=== PATIENT | female | born 1985 | race Caucasian/White ===

== ENCOUNTER 2024-08-07 08:00 | Outpatient (RCR) | payer OTHER, SELFPAY | END 2024-12-02 16:27 | disposition home or self-care (01) | PROVIDERS: Visit Provider Orthopaedic Surgery | DX: M25.561 Pain in right knee (principal); M25.562 Pain in left knee; M70.50 Other bursitis of knee, unspecified knee; Z51.89 Encounter for other specified aftercare | CPT/HCPCS: 97110; 97140; 97161; 97535 ==

== ENCOUNTER 2025-04-04 08:38 | Emergency (ER) | payer OTHER, SELFPAY ==
--- OUTSIDE RECORDS SUMMARY | 2025-04-04 08:41 | XMS_ITS | Encounter Summary ---
Author Organization [facility] Address [address] [place] [address] Care Team Providers Care Cable Coverer Name Role Phone Trev Pelaez MD Primary Care Provider [phone] Trev Pelaez MD Unavailable Trev Pelaez MD Unavailable Laura Ramos MD Unavailable [phone] Encounter Details Date Type Department Care Team (Late st Contact Info) Description 12/05/2018 [facility] [address] [place] [address] Laura Ramos MD [address] [place] [address] Social History Tobacco Use Types Packs/Day Years Used Date Smoking Tobacco: Former Cigarettes 1 10 0 10/30/2000 - 10/30/2010 Smokeless Tobacco: Never Quit: 10/30/2010 Alcohol Use Standard Drinks/Week Comments No 0 (1 standard drink = 0.6 oz pur e alcohol) PHQ-2 Answer Date Recorded PHQ-2 Score 0 11/07/2018 Comments No Sex and Gender Information Value Date Recorded Sex Assigned at Female 10/09/2018 10:08 AM PROFESSOR OF BIBLICAL STUDIES Legal Sex Female 5:09 AM PROFESSOR OF BIBLICAL STUDIES Gender Identity Female 10/09/2018 10:08 AM PROFESSOR OF BIBLICAL STUDIES Sexual Orientation Straight 10/09/2018 10 :08 AM PROFESSOR OF BIBLICAL STUDIES documented as of this encounter Miscellaneous Notes * Op Note - Laura Ramos MD - 12/05/2018 11:59 PM CST OPERATIVE LAPAROSCOPY: BILATERAL SALPINGECTOMY DATE OF PROCEDURE: Dec 05, 2018 STAFF SURGEON: Laura Ramos MD PREOPERATIVE DIAGNOSIS: desires sterilization POSTOPERATIVE DIAGNOSIS: Same, normal pelvis PROCEDURE: Single port laparoscopy, bilateral salpingectomy DERMATOLOGY NURSE PRACTITIONER SURGEON: Dr. Rivers ANESTHESIA: General endotracheal anesthesia. COMPLICATIONS: none noted EBL: 10 mL SPECIMENS: bilateral tubes FINDINGS: normal pelvis INDICATIONS: Desires sterilization. She was counseled on the risks, benefits, and alternatives to the procedure; informed consent was signed. DESCRIPTION OF PROCEDURE: The patient was taken to the operating room where general endotracheal anesthesia was induced without difficulty and found to be adequate. She was prepped and draped in the normal sterile fashion in the modified dorsal lithotomy position in [facility]. Oxford speculum was placed in the vagina to visualize the cervix, and a uterine manipulator was placed. Urinary catheter was placed for drainage of the bladder. Gloves were changed and attention was turned to the abdomen. A 2.5 cm skin incision was made with the scalpel in a curvilinear fashion, just inside the umbilical fold. The fascia was identified,grasped, and elevated with small herman clamps, and fascial incision was made with Romo scissors. The peritoneum was entered bluntly, and the single port was placed in the incision. The abdomen was insufflated to 15 mm Hg. The abdomen and pelvis were surveyed, normal anatomy noted. A blunt probe was usedto evacuate the bowels from the pelvis. The left Fallopian tube was then grasped and visually traced to its fimbriated end. The Thunderbeat device was then used to coagulate and divide the mesosalpinx, and again used to coagulate and divide the tube at the cornua, excising the entire Fallopian tubein the process. This procedure was then repeated on the contralateral side. Hemostasis was noted tara excellent. Both tubes were removed intact through the umbilical port sites. Careful reexamination of the pelvis revealed no bleeding and no abnormal pathology. Therefore, single port was removed, and the fascia closed with 0 vicryl. The skin was reapproximated with 3.0 monocryl. Attention was turned again to the pelvis. The catheter was removed, and urine output noted to be adequate and clear. A speculum was placed in the vagina, and the uterine manipulator was removed. Hemostasis at the tenaculum site was obtained with silver nitrate. All counts were correct x2. The patient was returned to the supine position, awoken from anesthesia, and taken to postoperative recovery in good condition. Dr. Rivers's assistance was needed for retraction, exposure, camera navigation, and for safe completion of the operative procedure(s) listed above. Laura Ramos MD 12:04 PM December 29, 2018 ESSOR OF BIBLICAL STUDIES documented in this encounter Plan of Treatment Not on file documented as of this encounter Visit Diagnoses Not on filedocumented in this encounter Additional Health Concerns Assessment Noted Time PHQ-9 Depression Total Score: 6 05/02/20 17 7:15 AM CDT documented as of this encounter Care Teams Cable Coverer Relationship Specialty Start Date End Date Trev Pelaez MD PCP - General Family Practice 04/04/16 [place] [address] [place] [address] PCP - Assigned PCP 04/10/16 01/01/19 [place] [address] [id number] Assigned PCP 04/10/16 11/27/21 Laura Ramos MD [address] [place] [address] Assigned OBGYN Provider 08/21/2010/17 documented as of this encounter
--- OUTSIDE RECORDS SUMMARY | 2025-04-04 08:41 | XMS_ITS | Encounter Summary ---
Author Organization [facility] Address [address] [place] [address] Care Team Providers Care Control Panel Builder Name Role Phone Trev Pelaez MD Primary Care Provider [phone] Trev Pelaez MD Unavailable Trev Pelaez MD Unavailable Laura Ramos MD Unavailable [phone] Reason for Visit * Reason Onset Date Comments Refill Request 04/29/2018 pantoprazole (MO OTONIX) 40 MG EC tablet Encounter Details Date Type Department Care Team (Late st Contact Info) Description 04/29/[address], [address] [place] [address] [place] [address] [place] [address] Refill Request (pantoprazole (PROTONIX) 40 MG EC tablet) Social History Tobacco Use Types Packs/Day Years Used Date Smoking Tobacco: Former Cigarettes Q uit: 10/30/2010 Smokeless Tobacco: Never Quit: 10/30/2010 Alcohol Use Standard Drinks/Week Comments No 0 (1 standard drink = 0.6 oz pur e alcohol) Comments No Sex and Gender Information Value Date Recorded Sex Assigned at Female 10/09/2018 10:08 AM CDC ASSOCIATE Legal Sex Female 5:09 AM CDC ASSOCIATE Gender Identity Female 10/09/2018 10:08 AM CDC ASSOCIATE Sexual Orientation Straight 10/09/2018 10 :08 AM CDC ASSOCIATE documented as of this encounter Miscellaneous Notes * Telephone Encounter - June Hidalgo RN - 05/01/2018 10:10 AM CDT Prescription approved per [facility] Refill Protocol. June Hidalgo RN * Telephone Encounter - Thea Gates - 04/30/2018 11:46 AM CDT Requested Prescriptions Pending Prescriptions Disp Refills ??? pantoprazole (PROTONIX) 40 MG EC tablet [Pharmacy Med Name: PANTOPRAZOLE SOD DR 40 MG TAB] Last Written Prescription Date: 12/02/16 Last Fill Quantity: 180, # refills: 3 Last office visit: 11/15/2017 with prescribing provider: Benigno Future Office Visit: 180 tablet 2 Sig: TAKE 1 TABLET (40 MG) BY MOUTH 2 TIMES DAILY PPI Protocol Passed 04/29/2018 2:02 PM Passed - Not on Clopidogrel (unless Pantoprazole ordered) Passed - No diagnosis of osteoporosis on record Passed - Recent (12 mo) or future (30 days) visit within the authorizing provider's specialty Patient had office visit in the last 12 months or has a visit in the next 30 days with authorizing provider or within the authorizing provider's specialty. See Patient Info tab in inbasket, or Choose Columns in Meds & Orders section of the refill encounter. Passed - Patient is age 18 or older Passed - No active pregnacy on record Passed - No positive test in past 12 months documented in this encounter Plan of Treatment Not on file documented as of this encounter Visit Diagnoses Diagnosis Eosinophilic esophagitis documented in this encounter Additional Health Concerns Assessment Noted Time PHQ-9 Depression Total Score: 6 05/02/20 17 7:15 AM CDT documented as of this encounter Care Teams Control Panel Builder Relationship Specialty Start Date End Date Trev Pelaez MD PCP - General Family Practice 04/04/16 [place] [address] [address] [address] PCP - Assigned PCP 04/10/16 01/01/19 [place] [address] [place] [address] Assigned PCP 04/10/16 11/27/21 Laura Ramos MD [address] [place] [address] Assigned OBGYN Provider 08/21/2010/17 documented as of this encounter
--- OUTSIDE RECORDS SUMMARY | 2025-04-04 08:41 | XMS_ITS | Encounter Summary ---
Author Organization [facility] Address [address] [place] [address] Care Team Providers Care Quality Assurance Advisor Name Role Phone Trev Pelaez MD Primary Care Provider [phone] Trev Pelaez MD Unavailable Trev Pelaez MD Unavailable Laura Ramos MD Unavailable [phone] Encounter Details Date Type Department Care Team (Late st Contact Info) Description 10/07/2017 [facility] [address] [phone] Torie Guerra Social History Tobacco Use Types Packs/Day Years Used Date Smoking Tobacco: Former Cigarettes Q uit: 10/30/2010 Smokeless Tobacco: Never Quit: 10/30/2010 Alcohol Use Standard Drinks/Week Comments No 0 (1 standard drink = 0.6 oz pur e alcohol) Comments No Sex and Gender Information Value Date Recorded Sex Assigned at Female 10/09/2018 10:08 AM RANGE MANAGEMENT SPECIALIST Legal Sex Female 5:09 AM RANGE MANAGEMENT SPECIALIST Gender Identity Female 10/09/2018 10:08 AM RANGE MANAGEMENT SPECIALIST Sexual Orientation Straight 10/09/2018 10 :08 AM RANGE MANAGEMENT SPECIALIST documented as of this encounter Plan of Treatment Not on file documented as of this encounter Visit Diagnoses Not on filedocumented in this encounter Additional Health Concerns Assessment Noted Time PHQ-9 Depression Total Score: 6 05/02/20 17 7:15 AM CDT documented as of this encounter Care Teams Quality Assurance Advisor Relationship Specialty Start Date End Date Trev Pelaez MD PCP - General Family Practice 04/04/16 [place] [address] [address] PCP - Assigned PCP 04/10/16 01/01/19 [place] [address] [id number] Assigned PCP 04/10/16 11/27/21 Laura Ramos MD [address] [place] [address] Assigned OBGYN Provider 08/21/2010/17 documented as of this encounter
--- OUTSIDE RECORDS SUMMARY | 2025-04-04 08:41 | XMS_ITS | Encounter Summary ---
Author Organization [facility] Address [address] [place] [address] Care Team Providers Care Powerhouse Operator Name Role Phone Trev Pelaez MD Primary Care Provider [phone] Trev Pelaez MD Unavailable Laura Ramos MD Unavailable [phone] Reason for Visit * Reason Onset Date Comments Medication Refill 03/13/2019 pantoprazole ( PROTONIX) 40 MG EC tablet Encounter Details Date Type Department Care Team (Late st Contact Info) Description 03/13/[address], [address] [place] [address] [place] [address] [place] [address] Medication Refill (pantoprazole (PROTONIX) 40 MG EC tablet) Social History Tobacco Use Types Packs/Day Years Used Date Smoking Tobacco: Former Cigarettes 1 10 0 10/30/2000 - 10/30/2010 Smokeless Tobacco: Never Quit: 10/30/2010 Alcohol Use Standard Drinks/Week Comments No 0 (1 standard drink = 0.6 oz pur e alcohol) PHQ-2 Answer Date Recorded PHQ-2 Score 0 02/22/2019 Comments No Sex and Gender Information Value Date Recorded Sex Assigned at Female 10/09/2018 10:08 AM INTERNAL AUDIT SENIOR MANAGER Legal Sex Female 5:09 AM INTERNAL AUDIT SENIOR MANAGER Gender Identity Female 10/09/2018 10:08 AM INTERNAL AUDIT SENIOR MANAGER Sexual Orientation Straight 10/09/2018 10 :08 AM INTERNAL AUDIT SENIOR MANAGER documented as of this encounter Miscellaneous Notes * Telephone Encounter - June Hidalgo RN - 03/14/2019 2:11 PM CDT Prescription approved per [facility] Refill Protocol. June Hidalgo RN * Telephone Encounter - Haily Palomares - 03/13/2019 8:36 AM CDT Requested Prescriptions Pending Prescriptions Disp Refills ??? pantoprazole (PROTONIX) 40 MG EC tablet [Pharmacy Med Name: PANTOPRAZOLE SOD DR 40 MG TAB] 180 tablet 1 Sig: TAKE 1 TABLET (40 MG) BY MOUTH 2 TIMES DAILY Last Written Prescription Date: 05/01/18 Last Fill Quantity: 180, # refills: 1 Last Office Visit: 11/27/2018 Pelaez Future Office Visit: Next 5 appointments (look out 90 days) Apr 12, 2019 2:30 PM CDT Colposcopy with Laura Ramos MD [facility] ([facility] [address] [place] [phone] PPI Protocol Passed - 03/13/2019 7:41 AM Passed - Not on Clopidogrel (unless Pantoprazole [...] section of the refill encounter. Passed - Medication is active on med list Passed - Patient is age 18 or [...] documented as of this encounter Care Teams Powerhouse Operator Relationship Specialty Start Date End Date Trev Pelaez MD PCP - General Family Practice 04/04/16 [place] [address] [place] [address] Assigned PCP 04/10/16 11/27/21 Laura Ramos MD [address] [place] [address] Assigned OBGYN Provider 08/21/2010/17 documented as of this encounter
--- OUTSIDE RECORDS SUMMARY | 2025-04-04 08:41 | XMS_ITS | Clinical Summary ---
Author Organization [facility] Address [address] [place] [address] Care Team Providers Care Station Gateman Name Role Phone Clinic, No Pcp Or Primary Care Provider Unavaila ble Allergies No known active allergies Medications No known medications Active Problems No known active problems Immunizations Immunization Administration Dates Next Due Hepatitis B (Peds) 09/25/2007,01/25/2006, 006 Human Papilloma Virus Vaccine 12/11/2007, 007 Influenza, IIV3 (Age >=3 years) 09/25/2007,10/05 MMR 06/16/1998 Oral Polio Vaccine 01/22/1992 Tdap 09/07/2009 Family History Medical History Relation Name Comments Good Health Father Heart Disease Mother Other Mother Lupus Relation Name Status Comments Father Alive Mother Alive Social History Tobacco Use Types Packs/Day Years Used Date Smoking Tobacco: Former Cigarettes Q uit: 2010 Smokeless Tobacco: Never Alcohol Use Standard Drinks/Week Comments Not Currently 0 (1 standard drink = 0.6 oz pur e alcohol) Social Connections Answer Date Recorded Frequency of Communication with Friends and Fami ly Not on file 10/30/2021 Financial Resource Strain Answer Date R ecorded Difficulty of Paying Living Expenses Not on file 10/30/2021 Difficulty of Paying Living Expenses Not on file 10/30/2021 Comments No Sex and Gender Information Value Date Recorded Sex Assigned at Not on file Legal Sex Female 7:42 AM DIFFUSION OPERATOR Gender Identity Not on file Sexual Orientation Not on file Obstetrics History Last Filed Vital Signs Vital Sign Reading Time Taken Comments Blood Pressure 116/75 10/29/2020 2:26 PM DIFFUSION OPERATOR Pulse 58 10/29/2020 2:26 PM DIFFUSION OPERATOR Temperature 36.4 C (97.6 F) 10/29/2020 2:26 PM DIFFUSION OPERATOR Respiratory Rate 16 09/04/2014 5:32 PM DIFFUSION OPERATOR Oxygen Saturation 100% 10/29/2020 2:26 PM DIFFUSION OPERATOR Inhaled Oxygen Concentration - - Weight 87.5 kg (193 lb) 10/29/2020 2:26 PM DIFFUSION OPERATOR Height 172.5 cm (5' 7.91) 10/29/2020 2:26 PM CS T Body Mass Index 29.42 10/29/2020 2:26 PM DIFFUSION OPERATOR Plan of Treatment Health Maintenance Due Date Last Done Comments Depression screening for age 12+ 1998 HIV for age 15-65 2001 Hepatitis C screening for ag e 18-79 2004 Pap test for age 21-65 2007 Hepatitis B series for 19+ ( 3 of 3 - 19+ 3-dose series) 11/20/2007 09/25/2007, 01/25/2006, 12/08/2005 Tetanus booster 09/07/2019 09/07/2009 BMI (ht and wt on same day) for age 18+ 10/29/2021 10/29/2020 COVID-19 vaccine series (2023- season) 2024 Influenza Vaccine (Season Ended) 2025 09/25/2007, 10/05/2004 Tdap Completed 09/07/2009 Pneumococcal series for age 6-49 Aged Out No longer eligible b ased on patient's age to complete this topic Insurance [place] [id number] Care Teams Station Gateman Relationship Specialty Start Date End Date Clinic, No Pcp Or . PCP - General 10/29/20
--- OUTSIDE RECORDS SUMMARY | 2025-04-04 08:41 | XMS_ITS | Clinical Summary ---
Author Organization [facility] Address [address] [place] [address] Care Team Providers Care Automatic Blocker Name Role Phone Trev Pelaez MD Primary Care Provider [phone] Allergies No known active allergies Medications pantoprazole (PROTONIX) 40 MG EC tabletIndication s:Eosinophilic esophagitis TAKE 1 TABLET (40 MG) BY MOUTH 2 TIMES DAILY 180 tablet 1 03/14/2019 Active Active Problems Patient Care Coordination No te Formatting of this note migh t be different from the original. 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 08/19/16 LSIL, +HR HPV. 10/17/16 [place]= No visible pathology. 12 month co-test due 09/201711/15/17 NIL pap, Neg HR HPV result. Plan cotest in 1 year. 02/22/19 NIL pap, + HR HPV 16. Plan colp. 04/12/19 [place]- ECC, negative. Plan 1 yr co-test 09/07/20 Reminder MyChart- marked as viewed by patient 10/08/20 Patient is lost to pap tracking follow-up. Eosinophilic esophagitis 10/12/2015 Overview (10/12/2015): [facility] 05/13 Overweight (BMI 25.0-29.9) 06/03/2013 CARDIOVASCULAR SCREENING; LDL GOAL LESS THAN 160 06/03/2013 Acne 05/20/2013 Anxiety 05/20/2013 Resolved Problems Problem Noted Date Diagnosed Date Resolved Date Pain in thoracic spine 06/10/201307/15 Pain in joint, shoulder region 06/10/2013 07/15/2013 Immunizations Immunization Administration Dates Next Due HPV Quadrivalent 12/11/2007,09/25/2007 Hepatitis B, Adult (Energix-B/Recombivax HB) ,12/08/2005 Hepatitis B, Peds (Engerix-B/Recombivax HB) 12/29 Influenza (IIV3) PF 09/25/2007,10/05/2004 Influenza (prior to 2023) 09/25/2007 MMR (MMRII) 06/16/1998 Nasal Influenza Vaccine 2-49 (FluMist) 8 OPV, trivalent, live 01/22/1992 OPV, unspecified 01/22/1992 TDAP (Adacel,Boostrix) 09/07/2009 Family History Medical History Relation Comments Schizophrenia Brother Heart Disease Maternal Grandfather Heart Disease Maternal Grandmother Heart Disease Mother Lupus Mother Diabetes Paternal Grandfather Breast Cancer Paternal Grandmother Bipolar Disorder Sister 1 Bipolar Disorder Sister 2 Relation Status Comments Brother Alive Daughter Alive Father Alive Maternal Grandfather Alive Maternal Grandmother Alive Mother Alive Paternal Grandfather Alive Paternal Grandmother Alive Sister 1 Alive Sister 2 Alive Sister 3 Alive Social History Tobacco Use Types Packs/Day Years Used Date Smoking Tobacco: Former Cigarettes 1 10 0 10/30/2000 - 10/30/2010 Smokeless Tobacco: Never Quit: 10/30/2010 Tobacco Cessation:Counseling Given: No Alcohol Use Standard Drinks/Week Comments No 0 (1 standard drink = 0.6 oz pur e alcohol) PHQ-2 Answer Date Recorded PHQ-2 Score 0 02/22/2019 Adolescent Education Answer Date Record ed Getting School Help Needed Not on file 07/29 Comments No Sex and Gender Information Value Date Recorded Sex Assigned at Female 10/09/2018 10:08 AM CONVEYOR CONSOLE OPERATOR Legal Sex Female 5:09 AM CONVEYOR CONSOLE OPERATOR Gender Identity Female 10/09/2018 10:08 AM CONVEYOR CONSOLE OPERATOR Sexual Orientation Straight 10/09/2018 10 :08 AM CONVEYOR CONSOLE OPERATOR Last Filed Vital Signs Vital Sign Reading Time Taken Comments Blood Pressure 110/74 04/12/2019 2:36 PM CDT Pulse 60 02/22/2019 2:11 PM CDT Temperature 37.1 C (98.7 F) 11/27/2018 6:22 PM CONVEYOR CONSOLE OPERATOR Respiratory Rate 20 11/27/2018 6:22 PM CONVEYOR CONSOLE OPERATOR Oxygen Saturation 100% 11/15/2017 11:44 AM CONVEYOR CONSOLE OPERATOR Inhaled Oxygen Concentration - - Weight 79.8 kg (176 lb) 04/12/2019 2:36 PM CDT Height 170.2 cm (5' 7) 02/22/2019 2:11 PM CDT Body Mass Index 27.57 02/22/2019 2:11 PM CDT Plan of Treatment Not on file Insurance [facility] Care Teams Automatic Blocker Relationship Specialty Start Date End Date Trev Pelaez MD PCP - General Family Practice 04/04/16
--- OUTSIDE RECORDS SUMMARY | 2025-04-04 08:41 | XMS_ITS | Encounter Summary ---
Author Organization [facility] Address [address] [place] [address] Care Team Providers Care Art Director Name Role Phone Trev Pelaez MD Primary Care Provider [phone] Trev Pelaez MD Unavailable Trev Pelaez MD Unavailable Laura Ramos MD Unavailable [phone] Encounter Details Date Type Department Care Team (Late st Contact Info) Description 11/06/2018 [facility] [address] [phone] Orin Viramontes Social History Tobacco Use Types Packs/Day Years [...] Sex Assigned at Female 10/09/2018 10:08 AM INSTRUCTIONAL MATERIAL DIRECTOR Legal Sex Female 5:09 AM INSTRUCTIONAL MATERIAL DIRECTOR Gender Identity Female 10/09/2018 10:08 AM INSTRUCTIONAL MATERIAL DIRECTOR Sexual Orientation Straight 10/09/2018 10 :08 AM INSTRUCTIONAL MATERIAL DIRECTOR documented as of this encounter Plan of Treatment Not on file documented as of this encounter Visit Diagnoses Not on filedocumented in this encounter Additional Health Concerns Assessment Noted Time PHQ-9 Depression Total Score: 6 05/02/20 17 7:15 AM CDT documented as of this encounter Care Teams Art Director Relationship Specialty Start Date End Date Trev Pelaez MD PCP - General Family Practice 04/04/16 [place] [address] [id number] PCP - Assigned PCP 04/10/16 01/01/19 [place] [address] [id number] Assigned PCP 04/10/16 11/27/21 Laura Ramos MD [address] [place] [address] Assigned OBGYN Provider 08/21/2010/17 documented as of this encounter
[2025-04-04 08:47] VITALS: BP 116/81; PULSE 71; RESP 18; TEMP 36.9; O2SAT 98; BMI 29.6
--- NOTE | 2025-04-04 09:36 | ED.GENADULT ---
HPI - General Adult General Chief complaint: Lower Extremity Swelling Stated complaint: Pain in the back of leg Time Seen by Provider: 04/04/25 08:43 History of Present Illness HPI narrative: Pt here for eval of R calf pain/swelling since Monday. Pt initially believed it was a pulled muscle, but would like blood clot ruled out. Has been using [employer], stretching , chiropractor with no relief. Had difficulty sleeping last noc d/t pain. Pain also slightly worsens with ambulation. Denies calf redness, SOB, OBC, injury/ trauma to calf, recent travel, smoking. States she did have a back injury aprox 3 weeks ago that had her laying more (up until Monday). 39-year-old woman presenting to the emergency department with concern of right calf area pain. Maybe some swelling. Gardening recently as unusual or atypical activity. Is normally quite active but lifting weights and other cardio but has been doing that less lately. She did do an aggressive massage to her legs she says. Went on the Internet and became concerned about potential blood clot. No bleeding problems or clotting problems in herself or family that she is aware of. Related Data Home Medications ?Medication ?Instructions ?Recorded ?Confirmed No Known Home Medications 06/18/24 04/04/25 Allergies Allergy/AdvReac Type Severity Reaction Status Date / Time No Known Drug Allergies Allergy Verified 04/04/25 08:47 Review of Systems Status of ROS: Reports: 6 or more systems reviewed and unremarkable except as noted in History and below [facility] Surgical History H/O tubal ligation ?Z98.51 - Tubal ligation status (ICD-10) Social History Smoking Status: Former smoker How often do you have a drink containing alcohol: never AUDIT-C Alcohol total score: 0 Non-prescribed substance use: denies use Exam Narrative: Exam Narrative: Pleasant. Well muscled. Breathing easily. Skin is warm and dry without erythema. I do not appreciate much in the way of edema in nor discrepancy in leg size is. On exam there is tenderness to palpation in the musculature or upper Achilles/membranous insertion area into the calf muscles. Negative Homans. Good strength to dorsi and plantar flexion. Const: Vital Signs, click to edit/add: Vital Signs - 24 hr 04/04/25 08:47 Temperature 98.4 F Pulse Rate [Pulse Oximeter] 71 Respiratory Rate 18 Blood Pressure [Ri ght Upper Arm] 116/81 Pulse Oximetry 98 Oxygen Delivery Me thod Room Air Documenting provider has reviewed patient's vital signs: yes Course Vital Signs Vital signs: Initial Vital Signs Temperature 98.4 F 04/04/25 08:47 Temperature Source Temporal Artery Scan 04/04/25 08:47 Pulse Rate 71 04/04/25 08:47 Pulse Rhythm Regular 04/04/25 08:47 Respiratory Rate 18 04/04/25 08:47 Blood Pressure 116/81 04/04/25 08:47 Blood Pressure Mean 92 04/04/25 08:47 Blood Pressure Position Sitting 04/04/25 08:47 Pulse Oximetry 98 04/04/25 08:47 Oxygen Delivery Method Room Air 04/04/25 08:47 Vital Signs Temperature 98.4 F 04/04/25 08:47 Pulse Rate 71 04/04/25 08:47 Respiratory Rate 18 04/04/25 08:47 Blood Pressure 116/81 04/04/25 08:47 Pulse Oximetry 98 04/04/25 08:47 Oxygen Delivery Method Room Air 04/04/25 08:47 Temperature 98.4 F 04/04/25 08:47 Pulse Rate 71 04/04/25 08:47 Respiratory Rate 18 04/04/25 08:47 Blood Pressure 116/81 04/04/25 08:47 Pulse Oximetry 98 04/04/25 08:47 Oxygen Delivery Method Room Air 04/04/25 08:47 Medical Decision Making MDM Narrative Medical decision making narrative: Considering level activity in historical lack of trauma I think DVT is unlikely. Wells criteria would indicate low risk. We discussed imaging is soon a possible to do though I think it would be of low yield. In mutually shared decision making opted to defer I suspect more of a strain issue here. See patient discharge plan for further discussion It seems like you have some irritation at the base of your calf muscles. This is where the Achilles starts to insert as well. You might have a bit of an Achilles tendinitis. I do not know if this was a result of your massaging or some other unusual/atypical physical activity. See handout on Achilles tendon injury. I do not think you have a real injury though to your Achilles. See handout also on calf strain. I think there will be overlap on these exercises but between these 2 I think you can improve. I would ice this sore area a couple of times daily over the next few days. Can take ibuprofen or acetaminophen. Watch for unilateral significant swelling that isn't really resolving after a of rest. Follow-up also if just not improving after 10-14 days. Medical Records Medical records reviewed: Yes I reviewed the patient's medical records Discharge Plan Discharge Clinical Impression: Strain of right calf muscle Patient Disposition: Home, Self-Care Condition: Stable Additional Instructions: It seems like you have some irritation at the base of your calf muscles. This is where the Achilles starts to insert as well. You might have a bit of an Achilles tendinitis. I do not know if this was a result of your massaging or some other unusual/atypical physical activity. See handout on Achilles tendon injury. I do not think you have a real injury though to your Achilles. See handout also on calf strain. I think there will be overlap on these exercises but between these 2 I think you can improve. I would ice this sore area a couple of times daily over the next few days. Can take ibuprofen or acetaminophen. Watch for unilateral significant swelling that isn't really resolving after a of rest. Follow-up also if just not improving after 10-14 days. Prescriptions: No Action No Known Home Medications Follow Up/Referrals: Provider,Not a Local [Primary Care Provider, Family Practice] Stand Alone Forms: [employer] Info Instructions
== END 2025-04-04 09:25 | disposition home or self-care (01) ==
LOC: ED 09:26
PROVIDERS: Emergency Provider Family Medicine
DX: S86.111A Strain of other muscle(s) and tendon(s) of posterior muscle group at lower leg level, right leg, initial encounter (principal)
CPT/HCPCS: 99282; 99283